=== PATIENT | male | born 1985 | race African-American/Black ===

== ENCOUNTER 2019-04-24 10:04 | Emergency (ER) | payer SELFPAY ==
[~2019-04-24] VITALS: Ht 175.3 cm; Wt 81.4 kg
[2019-04-24 10:07] VITALS: BP 150/78; PULSE 64; RESP 18; Ht 175.3 cm; Wt 81.4 kg
[2019-04-24] MEDS ORDERED: FLUORESCEIN STRIP RIGHT EYE ONE (10:30)
[2019-04-24] MEDS ORDERED: TETRACAINE 0.5% 4 ML OPH RIGHT EYE ONE (10:30)
[2019-04-24] MEDS ORDERED: OFLO5DRO46 RIGHT EYE (10:42)
--- NOTE | 2019-04-24 13:23 | ERD ---
ER Documentation Chief Complaint Chief Complaint RIGHT EYE REDNESS HPI 33-year-old male presenting with redness to his right eye. Patient states is been going for last 2 days and is mildly itchy with an occasional irritation of pain. Patient denies any contact use or glasses. Does not believe there is anything in his eye and denies any visual changes. Has not use any medication on the area. Denies medical problems. NKDA. Surgical history denies. Social history smokes marijuana daily. ROS All systems reviewed and are negative except as per history of present illness. Medications Home Meds Active Scripts Ofloxacin* (Ocuflox*) 0.3%-5 Ml Ophth Drops, 1 DROP RIGHT EYE QID, #1 BOTTLE Prov:NIKA MITTAL PA-C 04/24/19 Allergies Allergies: Coded Allergies: No Known Allergy (Unverified , 04/24/19) PMhx/Soc Medical and Surgical Hx: pt denies Surgical Hx Hx Miscellaneous Medical Probl: Yes (HX corneal abrasion) Hx Alcohol Use: Yes (social) Hx Substance Use: Yes (Marijuana) Hx Tobacco Use: No Smoking Status: Never smoker FmHx Family History: No diabetes, No coronary disease, No other Physical Exam Vitals Vital Signs Date Temp Pulse Resp B/P (MAP) Pulse Ox O2 O2 Flow FiO2 Time Delivery Rate 04/24/19 97.9 64 18 150/78 99 10:07 (102) Physical Exam GENERAL: The patient is well-appearing, well-nourished, in no acute distress HEENT: Atraumatic. Conjunctivae are pink. Pupils equal, round, and reactive to light. Injection noted to the right sclera.. Tympanic membranes clear bilaterally. Oropharynx clear. CHEST: Clear to auscultation bilaterally. There are no rales, wheezes or rhonchi. HEART: Regular rate and rhythm. No murmurs, clicks, rubs or gallops. Results 24 hrs Current Medications Medications Dose Sig/Dave Start Time Status Last (Trade) Ordered Route PRN Stop Time Admin Dose Reason Admin Fluorescein 1 strip ONCE ONCE 04/24/19 DC Sodium RIGHT EYE 10:30 (Ineiz-I-Bedu 04/24/19 10:31 p) Tetracaine 1 drop ONCE ONCE 04/24/19 DC HCl RIGHT EYE 10:30 (Tetracaine 04/24/19 10:31 0.5% Steri-Unit Rafia) Procedures/MDM ER course: Tetracaine and fluorescein stain applied to the right eye. Questionable uptake noted superior to the cornea. No foreign body noted. MDM: 33-year-old male presenting with concerning findings for possible corneal abrasion. I have low suspicion for retained foreign body or visual deficit. Patient is discharged with antibiotic ophthalmic drops. Patient is told symptom s change or worsen to return immediately to the ER. All questions answered at discharge Departure Diagnosis: Primary Impression: Corneal abrasion Condition: Stable Patient Instructions: Corneal Abrasion Referrals: [facility] YOU HAVE RECEIVED A MEDICAL SCREENING EXAM AND THE RESULTS INDICATE THAT YOU DO NOT HAVE A CONDITION THAT REQUIRES URGENT TREATMENT IN THE EMERGENCY DEPARTMENT. FURTHER EVALUATION AND TREATMENT OF YOUR CONDITION CAN WAIT UNTIL YOU ARE SEEN IN YOUR DOCTORS OFFICE WITHIN THE NEXT 1-2 DAYS. IT IS YOUR RESPONSIBILITY TO MAKE AN APPOINTMENT FOR FOLOW-UP CARE. IF YOU HAVE A PRIMARY DOCTOR --you should call your primary doctor and schedule an appointment IF YOU DO NOT HAVE A PRIMARY DOCTOR YOU CAN CALL OUR PHYSICIAN REFERRAL HOTLINE AT IF YOU CAN NOT AFFORD TO SEE A PHYSICIAN YOU CAN CHOSE FROM THE FOLLOWING [facility] [id number] [facility]. [facility] [address] [facility]. [facility] [address] [facility] [facility] [address] [facility]. [facility] [address] [facility]. [facility]. [address] Additional Instructions: FOLLOW UP WITH YOUR PRIMARY CARE PHYSICIAN TOMORROW.Return to this facility if you are not improving as expected. NIKA MITTAL PA-C Apr 24, 2019 13:22
== END 2019-04-24 11:16 | disposition home or self-care (01) ==
LOC: FTE 10:04
DX: S05.01XA Injury of conjunctiva and corneal abrasion without foreign body, right eye, initial encounter (principal); X58.XXXA Exposure to other specified factors, initial encounter; Y92.9 Unspecified place or not applicable
CPT/HCPCS: 99283